=== PATIENT | male | born 1945 | race Hispanic/Latino ===

== ENCOUNTER 2020-06-02 08:16 | Outpatient (CLI) | payer MEDICARE ==
--- NOTE | 2020-06-02 10:21 | RAD ---
CERVICAL SPINE 3 VIEWS: INDICATION: Cervical spondylosis. FINDINGS: Cervical vertebrae maintain height and alignment. Moderate degenerative changes are noted. Loss of disk space is seen throughout the cervical spine most pronounced at C3-4, C4-5, and C6-7. 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 Posterior spondylosis is present. Facet hypertrophy . IMPRESSION: There are moderate degenerative changes as described. POS: AH
--- NOTE | 2020-06-02 10:24 | MRI ---
MRI CERVICAL SPINE WITHOUT CONTRAST: Date: 06/02/2020 INDICATION: Cervical radicular pain. No comparison. FINDINGS: Cervical vertebra maintain normal height and alignment. Moderate degenerative changes are noted. 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 Disc space narrowing at C3-4. Vert ebral body signal is normal. No compression or edema. C2-3: Posterior spondylosis flattens the thecal sac and mildly effaces the anterior subarachnoid spa ce. No cord impingement. No central canal or foraminal stenosis. C3-4: Posterior disc and spondylosis abut and mildly impinge on the anterior cord. There is left for aminal stenosis due to facet and uncinate hypertrophy. C4-5: Disc bulge and spondylosis efface the anterior subarachnoid space. Mild right foraminal narrow ing due to facet and uncinate hypertrophy. C5-6: Posterior disc bulge and spondylosis efface the anterior subarachnoid space. No evidence of si gnificant central canal or foraminal stenosis. C6-7: Posterior disc bulge and spondylosis flatten the thecal sac and mildly efface the anterior sub arachnoid space. No cord impingement. Mild right foraminal narrowing due to uncinate hypertrophy. C7-T1: Disc bulge and spondylosis flatten the thecal sac and efface the anterior subarachnoid space. No cord impingement. No evidence of central canal or foraminal stenosis. Cord signal appears normally preserved. IMPRESSION: Cervical spondylosis is seen throughout the cervical spine. Mild cord impingement at C3-4 as describe d above. POS: [facility]
== END 2020-06-02 08:17 | disposition home or self-care (01) ==
LOC: BICMRI 08:16
PROVIDERS: ATTEND Family Medicine
DX: M47.22 Other spondylosis with radiculopathy, cervical region (principal); M50.10 Cervical disc disorder with radiculopathy, unspecified cervical region
CPT/HCPCS: 72040; 72141

== ENCOUNTER 2021-01-17 13:40 | Outpatient (CLI) | payer MEDICARE | END 2021-01-17 13:41 | disposition home or self-care (01) | LOC: BICULT 13:40 | PROVIDERS: ATTEND Specialist | DX: E05.90 Thyrotoxicosis, unspecified without thyrotoxic crisis or storm (principal) | CPT/HCPCS: 76536 ==

== ENCOUNTER 2021-10-19 10:43 | Outpatient (CLI) | payer MEDICARE | END 2021-10-19 10:44 | disposition home or self-care (01) | LOC: BICRAD 10:43 | PROVIDERS: ATTEND Family Medicine | DX: M54.50 Low back pain, unspecified (principal); M47.816 Spondylosis without myelopathy or radiculopathy, lumbar region | CPT/HCPCS: 72100 ==

== ENCOUNTER 2021-11-16 11:47 | Inpatient (IN) | payer MEDICARE ==
[2021-11-16] MEDS ORDERED: Communication Order-Pharmacy FS PRN (12:41)
[2021-11-16] MEDS ORDERED: Ondansetron ODT 4 MG TAB PO PRN (13:03)
[2021-11-16] MEDS ORDERED: Bisacodyl 10 MG SUPP PR PRN (13:03)
[2021-11-16] MEDS ORDERED: Senokot S 8.6-50 MG TAB PO PRN (13:03)
[2021-11-16] MEDS ORDERED: Ondansetron PF 4 MG/2 ML Vial IVP PRN (13:03)
[2021-11-16] MEDS ORDERED: Calcium Carbonate 500 MG ChewTAB PO PRN (13:03)
[2021-11-16] MEDS ORDERED: Acetaminophen 325 MG TAB PO PRN (13:03)
[2021-11-16] MEDS ORDERED: Nitroglycerin 0.4 MG TAB (25 Tab Bottle) SL PRN (13:07)
[2021-11-16 13:13] VITALS: BMI 29.9
[2021-11-16] MEDS ORDERED: Enoxaparin Sodium 80 MG/0.8 ML SYRINGE SC SCH (13:30)
[2021-11-16 13:54] LABS: #Basophils 0.1 thou/uL (0.0-0.2); #Eosinphils 0.8 thou/uL (0.0-0.7); #Lymphocytes 2.6 thou/uL (1.20-3.40); #Monocytes 0.7 thou/uL (0.11-0.59); #Neutrophils 4.1 thou/uL (1.40-6.50); %Basophils 0.7 % (0.0-1.0); %Lymphocytes 31.6 % (21.0-51.0); %Monocytes 8.6 % (0.0-10.0); %Neutrophils 49.1 % (42.0-75.0); Hemoglobin 13.5 g/dL (14.0-18.0); Mean Corpuscular HGB CONC 31.7 g/dL (32.0-36.0); Mean Corpuscular Hemoglobin 31.3 pg (27.0-31.0); Mean Corpuscular Volume 98.6 fL (78.0-98.0); Mean Platelet Volume 8.2 fL (7.4-10.4); Platelet Count 182 thou/uL (130-400); RBC Distribution Width 11.4 % (11.5-14.5); Red Blood Cell (RBC) Count 4.31 mill/uL (4.70-6.10); White Blood Cell (WBC) Count 8.4 thou/uL (4.8-10.8)
[2021-11-16 14:12] LABS: Anion Gap 14 mmol/L (10-20); BUN (Urea Nitrogen) 12 mg/dL (8.4-25.7); Calc. Creatinine Clearance 71 mL/min (70-130); Calcium 9.3 mg/dL (7.8-10.44); Carbon Dioxide 24 mmol/L (23-31); Chloride 107 mmol/L (98-107); Glucose 82 mg/dL (83-110); Magnesium 2.1 mg/dL (1.6-2.6); Potassium 3.8 mmol/L (3.5-5.1); Sodium 141 mmol/L (136-145)
[2021-11-16] MEDS ORDERED: cloNIDine 0.1 MG TAB PO PRN (15:42)
[2021-11-16 16:10] LABS: SARS-CoV-2 NAA Rapid Test Not Detected (NotDetected)
[2021-11-16] MEDS: Icosapent Ethyl 1 GM CAPSULE PO SCH (20:51)
[2021-11-16] MEDS: Cyanocobalamin (Vitamin B-12) 1,000 MCG TAB PO SCH (20:51)
[2021-11-16] MEDS ORDERED: Famotidine 20 MG TAB PO SCH (21:00)
[2021-11-17] MEDS: Atorvastatin Calcium 20 MG TAB PO SCH (05:39)
[2021-11-17] MEDS: Levothyroxine Sodium 75 MCG TAB PO SCH (05:39)
[2021-11-17 05:50] LABS: Cardiac Risk 3.3 (Less than 4.5)
[2021-11-17] MEDS ORDERED: Albumin 5% 500 ML ONE (06:20)
[2021-11-17] MEDS ORDERED: Fentanyl 250 MCG/5 ML VIAL ONE (06:55)
[2021-11-17] MEDS ORDERED: Midazolam HCl 5 mg/5 ml Vial ONE (06:56)
[2021-11-17] MEDS ORDERED: Dexmedetomidine 200 MCG/2 ML VIAL ONE (06:56)
[2021-11-17] MEDS ORDERED: Heparin 10,000 UNITS/1 ML VIAL 30,000 UNITS in Sodium Chloride 0.9% 1,000 ML FS SCH (07:00)
[2021-11-17] MEDS ORDERED: Sodium Chloride 0.9% 10 ML ONE (07:03)
[2021-11-17] MEDS ORDERED: Ondansetron ODT 4 MG TAB ONE (07:10)
[2021-11-17] MEDS ORDERED: Clindamycin/D5W 900 mg/50 ml Premix Bag ONE (07:12)
[2021-11-17] MEDS ORDERED: Levofloxacin 500 mg/D5W 100 ml Premix Bag ONE (07:12)
[2021-11-17] MEDS ORDERED: Cardioplegic Soln 1,000 ML BAG ONE (07:25)
[2021-11-17] MEDS ORDERED: Protamine Sulfate 50 MG/5 ML VIAL ONE (07:25)
[2021-11-17] MEDS ORDERED: Norepinephrine 4 MG/4 ML VIAL ONE (07:25)
[2021-11-17] MEDS ORDERED: Magnesium Sulfate 1 GM/2 ML VIAL ONE (07:25)
[2021-11-17] MEDS ORDERED: Heparin 5,000 UNITS/ML VIAL ONE (07:25)
[2021-11-17] MEDS ORDERED: Papaverine 60 MG/2 ML VIAL ONE (07:25)
[2021-11-17] MEDS ORDERED: Glycopyrrolate 0.2 MG/ML 5 ML SYRINGE ONE (07:25)
[2021-11-17] MEDS ORDERED: Vecuronium 10 MG VIAL ONE (07:25)
[2021-11-17] MEDS ORDERED: Aminocaproic Acid 5 GM/20 ML VIAL ONE (07:25)
[2021-11-17] MEDS ORDERED: Sodium Bicarb 50 MEQ/50 ML Abboject 8.4% SYRINGE ONE (07:25)
[2021-11-17] MEDS ORDERED: Nitroglycerin 50 MG/250 ML BOT ONE (07:25)
[2021-11-17] MEDS ORDERED: Ondansetron PF 4 MG/2 ML Vial ONE (07:25)
[2021-11-17] MEDS ORDERED: Calcium Chloride 1 GM/10 ML Abboject SYRINGE ONE (07:25)
[2021-11-17] MEDS ORDERED: Lidocaine 2% PF 100 mg/5 ml Syringe ONE (07:25)
[2021-11-17] MEDS ORDERED: Mannitol 12.5 GM/50 ML ONE (07:25)
[2021-11-17] MEDS ORDERED: Thrombin 5000 UNITS/5 ML VIAL ONE (07:25)
[2021-11-17] MEDS ORDERED: PROPOFOL 200 MG/20 ML VIAL ONE (07:25)
[2021-11-17] MEDS ORDERED: Lidocaine 1% PF 5 ML VIAL ONE (07:25)
[2021-11-17] MEDS ORDERED: Dexamethasone 20 MG/5 ML VIAL ONE (07:25)
[2021-11-17] MEDS ORDERED: Potassium Chloride 60 MEQ/30 ML VIAL ONE (07:25)
[2021-11-17] MEDS ORDERED: Heparin 30,000 units/30 ml VIAL ONE (07:25)
[2021-11-17] MEDS ORDERED: Aspirin 325 mg Enteric Coated Tablet PO SCH (09:00)
[2021-11-17] MEDS ORDERED: Insulin Regular 300 UNITS/3 ML VIAL ONE (09:22)
[2021-11-17] MEDS: Cholecalciferol 1,000 UNITS (25 MCG) TAB PO SCH (10:02)
[2021-11-17] MEDS: Icosapent Ethyl 1 GM CAPSULE PO SCH ×2 (10:02→20:14)
[2021-11-17] MEDS ORDERED: Post-Op Insulin Drip Protocol IVPB ONE (11:17)
[2021-11-17] MEDS ORDERED: Bisacodyl 5 MG TAB PO PRN (11:17)
[2021-11-17] MEDS ORDERED: Norepinephrine 8 MG/0.9% NS 250 ML IVPB PRN (11:17)
[2021-11-17] MEDS ORDERED: niCARdipine 25 MG in Sodium Chloride 0.9% 250 ML 250 ML IVPB PRN (11:17)
[2021-11-17] MEDS ORDERED: Fentanyl 100 MCG/2 ML VIAL SLOW IVP PRN ×2 (11:17)
[2021-11-17] MEDS ORDERED: Hetastarch 6% 500 ML 500 ML IVPB PRN (11:17)
[2021-11-17] MEDS ORDERED: Ondansetron PF 4 MG/2 ML Vial IVP PRN (11:17)
[2021-11-17] MEDS ORDERED: Potassium Chloride 20 MEQ/100 ML PREMIX BAG IVPB PRN (11:17)
[2021-11-17] MEDS ORDERED: Nitroglycerin 50 MG/250 ML BOT 250 ML IVPB PRN (11:17)
[2021-11-17] MEDS ORDERED: DOPamine 400 MG/D5W 250 ML 250 ML IVPB PRN (11:17)
[2021-11-17] MEDS ORDERED: Bisacodyl 10 MG SUPP PR PRN (11:17)
[2021-11-17] MEDS ORDERED: Guaifenesin DM 100-10/5 ML UDCUP PO PRN (11:17)
[2021-11-17] MEDS ORDERED: hydrALAZINE 20 MG/ML VIAL SLOW IVP PRN (11:17)
[2021-11-17] MEDS ORDERED: Mag-Al 1200 mg/1200 mg/30 ML UDCUP PO PRN (11:17)
[2021-11-17] MEDS ORDERED: Morphine 4 MG/ML VIAL SLOW IVP PRN (11:25)
[2021-11-17] MEDS ORDERED: Insulin Regular 300 UNITS/3 ML VIAL SC PRN (11:30)
[2021-11-17] MEDS ORDERED: Dextrose 5% in Water 1,000 ML IV PRN (11:30)
[2021-11-17] MEDS ORDERED: HUMULIN R 100 UNITS in Sodium Chloride 0.9% 100 ML IVPB SCH (11:30)
[2021-11-17] MEDS ORDERED: Dextrose 50% Abboject 50 ML SYRINGE SLOW IVP PRN (11:30)
[2021-11-17] MEDS: Lactated Ringer's 1,000 ML IV SCH (11:50)
[2021-11-17 11:56] LABS: INR-International Normal Ratio 1.4; Prothrombin Time 17.4 sec (12.0-14.7)
[2021-11-17 11:57] LABS: PTT 35.6 sec (22.9-36.1)
[2021-11-17] MEDS: Clindamycin/D5W 900 MG in Premix Bag 1 BAG IVPB SCH ×2 (11:58→18:06)
[2021-11-17] MEDS: Ketorolac Tromethamine 30 MG/ML VIAL IVP SCH ×2 (11:59→17:57)
[2021-11-17 12:17] LABS: Anion Gap 6 mmol/L (10-20); BUN (Urea Nitrogen) 11 mg/dL (8.4-25.7); Calc. Creatinine Clearance 60 mL/min (70-130); Calcium 7.3 mg/dL (7.8-10.44); Carbon Dioxide 25 mmol/L (23-31); Chloride 113 mmol/L (98-107); Glucose 124 mg/dL (83-110); Potassium 4.2 mmol/L (3.5-5.1); Sodium 140 mmol/L (136-145)
[2021-11-17 12:19] LABS: #Basophils 0.1 thou/uL (0.0-0.2); #Eosinphils 0.2 thou/uL (0.0-0.7); #Lymphocytes 1.4 thou/uL (1.20-3.40); #Monocytes 0.7 thou/uL (0.11-0.59); #Neutrophils 10.9 thou/uL (1.40-6.50); %Basophils 0.4 % (0.0-1.0); %Eosinophils 1.7 % (0.0-10.0); %Lymphocytes 10.7 % (21.0-51.0); %Monocytes 5.3 % (0.0-10.0); %Neutrophils 81.9 % (42.0-75.0); Hemoglobin 10.4 g/dL (14.0-18.0); MDiff Complete? YES; Macrocytosis SLIGHT = 6-15 cells (100X) (0-5/hpf); Mean Corpuscular HGB CONC 32.2 g/dL (32.0-36.0); Mean Corpuscular Hemoglobin 32.1 pg (27.0-31.0); Mean Corpuscular Volume 99.7 fL (78.0-98.0); Mean Platelet Volume 7.7 fL (7.4-10.4); Platelet Count 116 thou/uL (130-400); Platelet Morphology Comment Appears Decreased; Polychromasia SLIGHT = 2-3 cells (100X) (0-2/hpf); RBC Distribution Width 11.2 % (11.5-14.5); Red Blood Cell (RBC) Count 3.24 mill/uL (4.70-6.10); White Blood Cell (WBC) Count 13.3 thou/uL (4.8-10.8)
[2021-11-17 17:15] LABS: Hemoglobin 9.8 g/dL (14.0-18.0)
[2021-11-17 17:22] LABS: Potassium 4.5 mmol/L (3.5-5.1)
[2021-11-17] MEDS: Famotidine/PF 20 mg/2ml Vial SLOW IVP SCH (20:14)
[2021-11-17] MEDS: Cyanocobalamin (Vitamin B-12) 1,000 MCG TAB PO SCH (20:14)
[2021-11-17] MEDS ORDERED: Atorvastatin Calcium 20 MG TAB PO SCH (21:00)
[2021-11-18] MEDS: Ketorolac Tromethamine 30 MG/ML VIAL IVP SCH ×4 (00:01→17:14)
[2021-11-18] MEDS: Clindamycin/D5W 900 MG in Premix Bag 1 BAG IVPB SCH ×2 (00:01→06:06)
[2021-11-18] MEDS: Lactated Ringer's 1,000 ML IV SCH (00:51)
[2021-11-18 05:28] LABS: #Basophils 0.1 thou/uL (0.0-0.2); #Monocytes 1.1 thou/uL (0.11-0.59); #Neutrophils 11.8 thou/uL (1.40-6.50); %Basophils 0.5 % (0.0-1.0); %Eosinophils 0.1 % (0.0-10.0); %Lymphocytes 7.4 % (21.0-51.0); %Monocytes 7.6 % (0.0-10.0); %Neutrophils 84.5 % (42.0-75.0); Hemoglobin 7.9 g/dL (14.0-18.0); Mean Corpuscular HGB CONC 32.1 g/dL (32.0-36.0); Mean Corpuscular Hemoglobin 32.2 pg (27.0-31.0); Mean Platelet Volume 7.9 fL (7.4-10.4); Platelet Count 113 thou/uL (130-400); RBC Distribution Width 11.6 % (11.5-14.5); Red Blood Cell (RBC) Count 2.46 mill/uL (4.70-6.10); White Blood Cell (WBC) Count 13.9 thou/uL (4.8-10.8)
[2021-11-18] MEDS: Levothyroxine Sodium 75 MCG TAB PO SCH (05:37)
[2021-11-18 05:49] LABS: Anion Gap 8 mmol/L (10-20); BUN (Urea Nitrogen) 17 mg/dL (8.4-25.7); Calc. Creatinine Clearance 59 mL/min (70-130); Calcium 7.5 mg/dL (7.8-10.44); Carbon Dioxide 24 mmol/L (23-31); Chloride 111 mmol/L (98-107); Glucose 146 mg/dL (83-110); Potassium 4.3 mmol/L (3.5-5.1); Sodium 139 mmol/L (136-145)
[2021-11-18] MEDS: Icosapent Ethyl 1 GM CAPSULE PO SCH ×2 (07:27→20:35)
[2021-11-18] MEDS: Famotidine/PF 20 mg/2ml Vial SLOW IVP SCH (07:27)
[2021-11-18] MEDS: Cholecalciferol 1,000 UNITS (25 MCG) TAB PO SCH (07:27)
[2021-11-18] MEDS: Polyethylene Glycol 3350 17 GM Packet PO SCH (07:28)
[2021-11-18] MEDS: Atorvastatin Calcium 20 MG TAB PO SCH (07:28)
[2021-11-18] MEDS ORDERED: Aspirin Chewable 81 MG TAB PO SCH (09:00)
[2021-11-18] MEDS ORDERED: Guaifenesin DM 100-10/5 ML UDCUP PO PRN (15:05)
[2021-11-18] MEDS ORDERED: Bisacodyl 10 MG SUPP PR PRN (15:05)
[2021-11-18] MEDS ORDERED: Milk Of Magnesia 30 ML UDCUP PO PRN (15:05)
[2021-11-18] MEDS ORDERED: Mineral Oil ENEMA PR PRN (15:05)
[2021-11-18] MEDS ORDERED: Nitroglycerin 0.4 MG TAB (25 Tab Bottle) SL PRN (15:05)
[2021-11-18] MEDS ORDERED: Bisacodyl 5 MG TAB PO PRN (15:05)
[2021-11-18] MEDS ORDERED: Zolpidem Tartrate 5 MG TAB PO PRN (15:05)
[2021-11-18] MEDS ORDERED: Mag-Al 1200 mg/1200 mg/30 ML UDCUP PO PRN (15:05)
[2021-11-18] MEDS ORDERED: diphenhydrAMINE 25 MG CAP PO PRN (15:05)
[2021-11-18] MEDS: traMADol HCl 50 MG TAB PO PRN (15:38)
[2021-11-18] MEDS: Cyanocobalamin (Vitamin B-12) 1,000 MCG TAB PO SCH (20:35)
[2021-11-19] MEDS: Levothyroxine Sodium 75 MCG TAB PO SCH (05:43)
[2021-11-19] MEDS: traMADol HCl 50 MG TAB PO PRN (05:49)
[2021-11-19] MEDS: Polyethylene Glycol 3350 17 GM Packet PO SCH (08:40)
[2021-11-19] MEDS: Aspirin 325 mg Enteric Coated Tablet PO SCH (08:41)
[2021-11-19] MEDS: Atorvastatin Calcium 20 MG TAB PO SCH (08:41)
[2021-11-19] MEDS: Cholecalciferol 1,000 UNITS (25 MCG) TAB PO SCH (08:41)
[2021-11-19] MEDS: Icosapent Ethyl 1 GM CAPSULE PO SCH ×2 (08:46→20:21)
[2021-11-19] MEDS ORDERED: Digoxin 0.5 MG/2 ML AMP ONE (12:28)
[2021-11-19] MEDS ORDERED: Amiodarone 150 MG in Dextrose 5% in Water 100 ML IVPB SCH (12:30)
[2021-11-19] MEDS ORDERED: Digoxin 0.5 MG/2 ML AMP SLOW IVP SCH (12:30)
[2021-11-19 13:10] LABS: Anion Gap 13 mmol/L (10-20); BUN (Urea Nitrogen) 20 mg/dL (8.4-25.7); Calc. Creatinine Clearance 60 mL/min (70-130); Calcium 8.2 mg/dL (7.8-10.44); Carbon Dioxide 20 mmol/L (23-31); Chloride 106 mmol/L (98-107); Glucose 138 mg/dL (83-110); Magnesium 2.1 mg/dL (1.6-2.6); Potassium 4.1 mmol/L (3.5-5.1); Sodium 135 mmol/L (136-145)
[2021-11-19] MEDS: Amiodarone 450 MG in Dextrose 5% in Water 250 ML IVPB SCH ×2 (13:13→23:00)
[2021-11-19 13:45] LABS: ALT (SGPT) 20 U/L (8-55); AST (SGOT) 29 U/L (5-34); Albumin 3.2 g/dL (3.4-4.8); Alkaline Phosphatase 39 U/L (40-110); Bilirubin, Direct 0.2 mg/dL (0.1-0.3); Bilirubin, Total 0.5 mg/dL (0.2-1.2); Protein, Total 5.4 g/dL (5.8-8.1)
[2021-11-19] MEDS: Cyanocobalamin (Vitamin B-12) 1,000 MCG TAB PO SCH (20:21)
[2021-11-20] MEDS: Levothyroxine Sodium 50 MCG TAB PO SCH (05:15)
[2021-11-20] MEDS: traMADol HCl 50 MG TAB PO PRN (05:26)
[2021-11-20] MEDS: Aspirin 325 mg Enteric Coated Tablet PO SCH (08:54)
[2021-11-20] MEDS: Icosapent Ethyl 1 GM CAPSULE PO SCH ×2 (08:54→20:47)
[2021-11-20] MEDS: Atorvastatin Calcium 20 MG TAB PO SCH (08:54)
[2021-11-20] MEDS: Furosemide 40 MG TAB PO SCH (08:54)
[2021-11-20] MEDS: Polyethylene Glycol 3350 17 GM Packet PO SCH (08:54)
[2021-11-20] MEDS: Cholecalciferol 1,000 UNITS (25 MCG) TAB PO SCH (08:54)
[2021-11-20] MEDS: Cyanocobalamin (Vitamin B-12) 1,000 MCG TAB PO SCH (20:47)
[2021-11-20] MEDS ORDERED: Amiodarone 200 MG TAB PO SCH (21:00)
[2021-11-21] MEDS: Levothyroxine Sodium 50 MCG TAB PO SCH (05:50)
[2021-11-21] MEDS ORDERED: Metoprolol Tartrate 5 MG/5 ML VIAL IVP SCH (08:15)
[2021-11-21] MEDS: Furosemide 40 MG TAB PO SCH (09:26)
[2021-11-21] MEDS: Polyethylene Glycol 3350 17 GM Packet PO SCH (09:26)
[2021-11-21] MEDS: Amiodarone 200 MG TAB PO SCH ×3 (09:26→20:05)
[2021-11-21] MEDS: Atorvastatin Calcium 20 MG TAB PO SCH (09:26)
[2021-11-21] MEDS: Cholecalciferol 1,000 UNITS (25 MCG) TAB PO SCH (09:26)
[2021-11-21] MEDS: Aspirin 325 mg Enteric Coated Tablet PO SCH (09:27)
[2021-11-21] MEDS: Icosapent Ethyl 1 GM CAPSULE PO SCH ×2 (10:58→20:04)
[2021-11-21] MEDS: Cyanocobalamin (Vitamin B-12) 1,000 MCG TAB PO SCH (20:05)
[2021-11-22] MEDS: Acetaminophen 325 MG TAB PO PRN ×2 (03:23→21:13)
[2021-11-22] MEDS: Levothyroxine Sodium 50 MCG TAB PO SCH (05:27)
[2021-11-22] MEDS: Aspirin 325 mg Enteric Coated Tablet PO SCH (09:43)
[2021-11-22] MEDS: Cholecalciferol 1,000 UNITS (25 MCG) TAB PO SCH (09:43)
[2021-11-22] MEDS: Atorvastatin Calcium 20 MG TAB PO SCH (09:44)
[2021-11-22] MEDS: Furosemide 40 MG TAB PO SCH (09:44)
[2021-11-22] MEDS: Icosapent Ethyl 1 GM CAPSULE PO SCH ×2 (09:45→21:03)
[2021-11-22] MEDS: Amiodarone 200 MG TAB PO SCH ×3 (09:45→21:01)
[2021-11-22] MEDS: Polyethylene Glycol 3350 17 GM Packet PO SCH (09:46)
[2021-11-22] MEDS ORDERED: Metoprolol Tartrate 25 MG TAB PO SCH ×2 (12:45→21:00)
[2021-11-22] MEDS ORDERED: Metoprolol Tartrate 5 MG/5 ML VIAL IVP SCH (12:45)
[2021-11-22] MEDS: Cyanocobalamin (Vitamin B-12) 1,000 MCG TAB PO SCH (21:03)
[2021-11-23 04:59] LABS: #Eosinphils 0.6 thou/uL (0.0-0.7); #Lymphocytes 1.9 thou/uL (1.20-3.40); #Monocytes 1.2 thou/uL (0.11-0.59); #Neutrophils 7.4 thou/uL (1.40-6.50); %Basophils 0.3 % (0.0-1.0); %Eosinophils 5.5 % (0.0-10.0); %Lymphocytes 17.1 % (21.0-51.0); %Monocytes 10.4 % (0.0-10.0); %Neutrophils 66.7 % (42.0-75.0); Hemoglobin 9.9 g/dL (14.0-18.0); Mean Corpuscular HGB CONC 32.5 g/dL (32.0-36.0); Mean Corpuscular Hemoglobin 32.1 pg (27.0-31.0); Mean Corpuscular Volume 98.7 fL (78.0-98.0); Mean Platelet Volume 7.8 fL (7.4-10.4); Platelet Count 237 thou/uL (130-400); RBC Distribution Width 11.8 % (11.5-14.5); Red Blood Cell (RBC) Count 3.09 mill/uL (4.70-6.10); White Blood Cell (WBC) Count 11.1 thou/uL (4.8-10.8)
[2021-11-23 05:15] LABS: Anion Gap 8 mmol/L (10-20); BUN (Urea Nitrogen) 22 mg/dL (8.4-25.7); Calc. Creatinine Clearance 59 mL/min (70-130); Calcium 8.5 mg/dL (7.8-10.44); Carbon Dioxide 31 mmol/L (23-31); Chloride 104 mmol/L (98-107); Glucose 122 mg/dL (83-110); Potassium 3.5 mmol/L (3.5-5.1); Sodium 139 mmol/L (136-145)
[2021-11-23] MEDS: Levothyroxine Sodium 50 MCG TAB PO SCH (05:41)
[2021-11-23] MEDS ORDERED: Ondansetron PF 4 MG/2 ML Vial IVP PRN (08:00)
[2021-11-23] MEDS ORDERED: Ondansetron PF 4 MG/2 ML Vial IVP SCH (08:15)
[2021-11-23] MEDS: Icosapent Ethyl 1 GM CAPSULE PO SCH ×2 (08:56→21:11)
[2021-11-23] MEDS: Aspirin 325 mg Enteric Coated Tablet PO SCH (08:58)
[2021-11-23] MEDS: Amiodarone 200 MG TAB PO SCH ×3 (08:58→21:10)
[2021-11-23] MEDS: Atorvastatin Calcium 20 MG TAB PO SCH (08:58)
[2021-11-23] MEDS: Polyethylene Glycol 3350 17 GM Packet PO SCH (08:58)
[2021-11-23] MEDS: Cholecalciferol 1,000 UNITS (25 MCG) TAB PO SCH (08:58)
[2021-11-23] MEDS: Enoxaparin Sodium 80 MG/0.8 ML SYRINGE SC SCH (21:10)
[2021-11-23] MEDS: Cyanocobalamin (Vitamin B-12) 1,000 MCG TAB PO SCH (21:10)
[2021-11-23 22:58] LABS: SARS-CoV-2 PCR by NAA Not Detected (NotDetected)
[2021-11-24] MEDS: Levothyroxine Sodium 50 MCG TAB PO SCH (05:35)
[2021-11-24] MEDS ORDERED: Aspirin 325 mg Enteric Coated Tablet PO SCH (07:58)
[2021-11-24] MEDS: Cholecalciferol 1,000 UNITS (25 MCG) TAB PO SCH (08:38)
[2021-11-24] MEDS: Icosapent Ethyl 1 GM CAPSULE PO SCH (08:38)
[2021-11-24] MEDS: Amiodarone 200 MG TAB PO SCH ×2 (08:38→15:58)
[2021-11-24] MEDS: Enoxaparin Sodium 80 MG/0.8 ML SYRINGE SC SCH (08:38)
[2021-11-24] MEDS: Atorvastatin Calcium 20 MG TAB PO SCH (08:38)
[2021-11-24] MEDS: Polyethylene Glycol 3350 17 GM Packet PO SCH (08:42)
[2021-11-24] MEDS ORDERED: Aspirin 81 mg Enteric Coated Tablet PO SCH (09:00)
[2021-11-24] MEDS: Acetaminophen 325 MG TAB PO PRN (15:57)
[2021-11-24 16:39] VITALS: BP 123/60; TEMP 97.4
[2021-11-24] MEDS ORDERED: Apixaban 5 MG TAB PO SCH (21:00)
== END 2021-11-24 18:15 | DRG 236 ==
LOC: 2SW 11:56 → CCU 11-17 06:30 → 2NO 11-18 14:48
PROVIDERS: ADMIT Internal Medicine; ATTEND Internal Medicine
PROC: 02100Z9 Bypass Coronary Artery, One Artery from Left Internal Mammary, Open Approach (ICD-10-PCS; principal; 2021-11-17)
PROC: 021209W Bypass Coronary Artery, Three Arteries from Aorta with Autologous Venous Tissue, Open Approach (ICD-10-PCS; 2021-11-17)
PROC: 06BQ4ZZ Excision of Left Saphenous Vein, Percutaneous Endoscopic Approach (ICD-10-PCS; 2021-11-17)
PROC: 02L70CK Occlusion of Left Atrial Appendage with Extraluminal Device, Open Approach (ICD-10-PCS; 2021-11-17)
PROC: 5A1221Z Performance of Cardiac Output, Continuous (ICD-10-PCS; 2021-11-17)
DX: I25.110 Atherosclerotic heart disease of native coronary artery with unstable angina pectoris (principal); I48.92 Unspecified atrial flutter; I82.402 Acute embolism and thrombosis of unspecified deep veins of left lower extremity; E87.1 Hypo-osmolality and hyponatremia; E03.9 Hypothyroidism, unspecified; Z20.822 Contact with and (suspected) exposure to COVID-19; D53.9 Nutritional anemia, unspecified; E78.5 Hyperlipidemia, unspecified; N18.30 Chronic kidney disease, stage 3 unspecified; K21.9 Gastro-esophageal reflux disease without esophagitis; I48.0 Paroxysmal atrial fibrillation; Z79.82 Long term (current) use of aspirin; Z79.899 Other long term (current) drug therapy; Z98.890 Other specified postprocedural states; Z87.891 Personal history of nicotine dependence; Z88.0 Allergy status to penicillin; Z91.040 Latex allergy status
CPT/HCPCS: 36415; 36416; 36430; 71045; 80048; 80061; 80076; 83735; 84439; 84443; 85025; 85610; 85730; 86850; 86900; 86901; 93005; 93010; 93798; C1776; J0282; J1100; J1160; J1642; J1644; J1650; J1815; J1885; J1956; J2001; J2150; J2250; J2405; J2440; J2704; J2720; J3010; J3370; J3475; J3480; J3490; J7070; J7120; P9016; P9045; Q0162; S0017; S0028; U0002; U0003; U0005